=== PATIENT | male | born 1990 | race Caucasian/White ===

== ENCOUNTER 2016-09-25 17:23 | Emergency (ER) | payer OTHER ==
[~2016-09-25] VITALS: Ht 182.9 cm; Wt 90.7 kg
[~2016-09-25 17:23] MED LIST: AMOX500C2 PO; HYDR-1231 PO; SULF-222 PO; [UNRECOGNIZED DRUG - CODE] TP
--- NOTE | 2016-09-25 19:39 | Diagnostic Imaging Report ---
INDICATION: Trauma over Memorial weekend with knee pain. EXAMINATION: Three views of the right knee were obtained. FINDINGS: Nonweightbearing images show the joint space to be well preserved. Articulating surfaces are smooth. Patellofemoral joint is in good alignment. No fracture is demonstrated. IMPRESSION: Normal right knee. Dictated by: Dictated on workstation # [id number]
--- NOTE | 2016-09-25 20:16 | ED Lower Extremity ---
General Chief Complaint: Lower Extremity Stated Complaint: KNEE PAIN Nursing Triage Note: TO ED PER W/C REPORTS THAT IN AUGUST TWISTED HIS KNEE TODAY TWISTED HAVING PAIN. TOOK HYDROCODONE 20MIN [employer] PROFESSIONAL WITHOUT PAIN RELIEF Nursing Sepsis Screen: No Definite Risk Allergies and Home Medications Allergies Coded Allergies: No Known Drug Allergies (Unverified , 12/26/13) Home Medications Amoxicillin 500 Mg Capsule, 1 EACH PO TID, #30 Prescribed by: ALEX BOURNE on 04/13/14 1250 Hydrocodone Bit/Acetaminophen 1 Tab Tablet, 1-2 TAB PO Q6H PRN for PAIN, #14 Prescribed by: ALEX BOURNE on 04/13/14 1250 Past Wignqyj-Xotdct-Vslfqf Hx Patient Social History Alcohol Use: Occasionally Uses Recreational Drug Use: No Smoking Status: Current Everyday Smoker Recent Foreign Travel: No Contact w/Someone Who Travel: No Recent Infectious Disease Expo: No Immunizations Up To Date Tetanus Booster (TDap): More than 5yrs Surgeries HX Surgeries: Yes Respiratory Hx Respiratory Disorders: No Cardiovascular Hx Cardiac Disorders: No Neurological Hx Neurological Disorders: No Reproductive System Hx Reproductive Disorders: No Sexually Transmitted Disease: No HIV/AIDS: No Genitourinary Hx Genitourinary Disorders: No Gastrointestinal Hx Gastrointestinal Disorders: No Musculoskeletal Hx Musculoskeletal Disorders: No Endocrine Hx Endocrine Disorders: No HEENT HX ENT Disorders: No Cancer Hx Cancer: No Psychosocial Hx Psychiatric Problems: No Integumentary HX Skin/Integumentary Disorder: No Blood Transfusions Hx Blood Disorders: No Adverse Reaction to a Blood Tr: No Family Medical History Family Medial History: Thyroid disease 19 MOTHER Physical Exam Vital Signs Vital Sign - Last 12Hours 09/25/16 18:04 Temp 99.0 Pulse 93 Resp 18 B/P (MAP) 145/100 Capillary Refill : Less Than 3 Seconds Progress/Results/Core Measures Results/Orders Vital Signs/I&O Vital Sign - Last 12Hours 09/25/16 18:04 Temp 99.0 Pulse 93 Resp 18 B/P (MAP) 145/100 Blood Pressure Mean: 115 Diagnostic Imaging Diagonstic Imaging: Xray Plain Films/CT/US/NM/MRI: knee Comments X-ray viewed by me and report reviewed. See report below: NAME: NICOLE DIAZ Kelli MED REC#: [id number] PT STATUS: REG ER : 1990 PHYSICIAN: RAÚL BONEP ADMIT DATE: 09/25/16/ER Draft Date of Exam:09/25/16 KNEE, RIGHT, 3 VIEWS INDICATION: Trauma over weekend with knee pain. EXAMINATION: Three views of the right knee were obtained. FINDINGS: Nonweightbearing images show the joint space to be well preserved. Articulating surfaces are smooth. Patellofemoral joint is in good alignment. No fracture is demonstrated. IMPRESSION: Normal right knee. Dictated on workstation # [id number] Dict: 09/25/161934 Trans: 09/25/161937 [facility] [id number] Interpreted by: EVAN APODACA MD Departure Impression Impression: Primary Impression: Right knee injury Qualified Codes: S89.91XA - Unspecified injury of right lower leg, initial encounter Disposition: HOME, SELF-CARE Condition: Improved Departure-Patient Inst. Decision time for Depature: 20:14 Referrals: NO,LOCAL PHYSICIAN (PCP/Family) Primary Care Physician Patient Instructions: Knee Sprain (DC) Add. Discharge Instructions: There are no bony injuries to your knee identified on x-ray. You may have soft tissue injury that could be better assessed with MRI. Please follow-up with your primary care provider soon as possible. In the meantime you may use a knee immobilizer and crutches as necessary. Icing in 20 minute intervals and elevation should also be helpful. Compression with an Sudheer bandage may help with stability and swelling. For pain you may take ibuprofen up to 800 mg every 8 hours as needed. Add hydrocodone as prescribed for pain not controlled by ibuprofen. All discharge instructions reviewed with patient and/or family. Voiced understanding. Scripts Hydrocodone/Acetaminophen (Hydrocodon -Acetaminophen 5-325) 1 Each Tablet 1 EACH PO Q4H Y for PAIN, #14 TAB Prov: TYLER TOLENTINO MD 09/25/16 TYLER TOLENTINO MD Sep 25, 2016 20:16
[2016-09-25] MEDS ORDERED: HYDR-3812 PO (20:23)
[2016-09-25] MEDS ORDERED: HYDROcodone/APAP 5 MG/325 MG (LORTAB) TAB PO ONE (20:30)
[2016-09-25] MEDS ORDERED: KETOROLAC 60 MG/2 ML VIAL IM ONE (20:30)
[2016-09-25 20:42] VITALS: BP 0/0
== END 2016-09-25 20:42 | disposition home or self-care (01) ==
LOC: EDUNIT# 17:23 → ER 17:26
DX: S89.91XA Unspecified injury of right lower leg, initial encounter (principal); X50.9XXA Other and unspecified overexertion or strenuous movements or postures, initial encounter; F17.200 Nicotine dependence, unspecified, uncomplicated
CPT/HCPCS: 73562; 99283

== ENCOUNTER 2016-09-26 10:05 | Emergency (ER) | payer OTHER ==
[~2016-09-26] VITALS: Ht 180.3 cm; Wt 95.3 kg
[~2016-09-26 10:05] MED LIST changes: +HYDR-3812 PO
[2016-09-26] MEDS ORDERED: oxyCODONE/APAP 5/325MG (PERCOCET 5) TABLET PO STA (11:37)
[2016-09-26] MEDS ORDERED: KETOROLAC 60 MG/2 ML VIAL IM STA (11:37)
--- NOTE | 2016-09-26 11:44 | ED Lower Extremity ---
General Chief Complaint: Lower Extremity Stated Complaint: RIGHT KNEE PAIN Nursing Triage Note: PT WAS SEEN IN ED LAST PM, PT HAS KNEE IMMOBILIZER IN PLACE ON R KNEE. STATES HYDROCODONE IN MAKING HIM ITCH. NO RELIEF OF PAIN FROM PO MEDS Nursing Sepsis Screen: No Definite Risk Source: patient Exam Limitations: no limitations History of Present Illness Time seen by provider: 11:30 Initial Comments Here with complaint of right knee pain. Seen yesterday for the same and was given prescription medicine. He has appointment at the clinic at 1440 today for evaluation for MRI. No reported trauma but did state that he twisted his knee when he got up yesterday at home. He has not taken any pain medicine today because he took a hydrocodone yesterday and it made him itch. Other than the itching had no side effects. He is taking hydrocodone several times in the past. He was just concerned about what he can do. Denies breathing problems, nausea, vomiting or abdominal pain. Denies throat or tongue swelling. Onset: yesterday Severity: moderate Pain/Injury Location: right knee Method of Injury: twisted Modifying Factors: Improves With Immobilization, Worse With Movement Allergies and Home Medications Allergies Coded Allergies: No Known Drug Allergies (Unverified , 12/26/13) Home Medications Hydrocodone/Acetaminophen 1 Each Tablet, 1 EACH PO Q4H PRN for PAIN, #14 Prescribed by: TYLER LEHMAN on 09/25/162022 Constitutional: see HPI, No chills, No fever Respiratory: no symptoms reported Cardiovascular: no symptoms reported Musculoskeletal: joint pain, joint swelling Skin: no symptoms reported Past Kkyhqhu-Cctwqv-Lezctc Hx Patient Social History Alcohol Use: Occasionally Uses Recreational Drug Use: No Smoking Status: Current Everyday Smoker Recent Foreign Travel: No Contact w/Someone Who Travel: No Recent Infectious Disease Expo: No Recent Hopitalizations: No Immunizations Up To Date Tetanus Booster (TDap): More than 5yrs Surgeries HX Surgeries: Yes Respiratory Hx Respiratory Disorders: No Cardiovascular Hx Cardiac Disorders: No Neurological Hx Neurological Disorders: No Reproductive System Hx Reproductive Disorders: No Sexually Transmitted Disease: No HIV/AIDS: No Genitourinary Hx Genitourinary Disorders: No Gastrointestinal Hx Gastrointestinal Disorders: No Musculoskeletal Hx Musculoskeletal Disorders: No Endocrine Hx Endocrine Disorders: No HEENT HX ENT Disorders: No Cancer Hx Cancer: No Psychosocial Hx Psychiatric Problems: No Integumentary HX Skin/Integumentary Disorder: No Blood Transfusions Hx Blood Disorders: No Adverse Reaction to a Blood Tr: No Reviewed Nursing Assessment Reviewed/Agree w Nursing PMH: Yes Family Medical History Significant Family History: No Pertinent Family Hx Family Medial History: Thyroid disease 19 MOTHER Physical Exam Vital Signs Vital Sign - Last 12Hours 09/26/16 10:24 Temp 97.4 Pulse 86 Resp 18 B/P (MAP) 159/62 Pulse Ox 98 Capillary Refill : Less Than 3 Seconds General Appearance: WD/WN, no apparent distress Cardiovascular: regular rate, rhythm, no murmur Respiratory: lungs clear, normal breath sounds Knees: right knee pain, right knee soft tissue tenderness, right knee swelling , right knee other (mild pain to the posterior aspect of the knee with minimal anterior swelling. No tenderness along the tibial plateau.) Neurologic/Tendon: normal sensation, normal motor functions, normal tendon functions Neurologic/Psychiatric: alert, oriented x 3 Skin: normal color, warm/dry Progress/Results/Core Measures Results/Orders My Orders Orders - ESTHELA PERKINS MD Ketorolac Injection (Toradol Injection) (09/26/16 11:37) Oxycodone/Apap 5/325mg Tablet (Percocet (09/26/16 11:37) Vital Signs/I&O Vital Sign - Last 12Hours 09/26/16 10:24 Temp 97.4 Pulse 86 Resp 18 B/P (MAP) 159/62 Pulse Ox 98 Blood Pressure Mean: 94 Progress Note : Progress Note Percocet 2 tabs by mouth and Toradol 60 mg IM ordered. I did re-situate the Sudheer wrap and knee immobilizer after exam. Patient states that it was more comfortable. Patient has appointment today and his father we'll get him to the appointment. He will take Benadryl with his hydrocodone has he's had tender coded in the past successfully for many times. Discharged home with return pressure. Patient verbalize understanding instructions and agreement with plan. Departure Impression Impression: Primary Impression: Internal derangement of right knee Disposition: 01 HOME, SELF-CARE Condition: Stable Departure-Patient Inst. Referrals: NO,LOCAL PHYSICIAN (PCP/Family) Primary Care Physician Patient Instructions: Knee Sprain (DC) Add. Discharge Instructions: All discharge instructions reviewed with patient and/or family. Voiced understanding. Take medications as directed. You may use [id number] Benadryl or the generic diphenhydramine 25 mg every 6 hours as needed with your pain med to decrease itching. Keep your appointment today as scheduled. Return for worse pain, swelling, weakness, breathing problems or other concerns as needed. ESTHELA PERKINS MD Sep 26, 2016 11:44
[2016-09-26 11:50] VITALS: BP 148/62
== END 2016-09-26 11:50 | disposition home or self-care (01) ==
LOC: EDUNIT# 10:05 → ER 10:08
DX: M23.91 Unspecified internal derangement of right knee (principal)
CPT/HCPCS: 99283

== ENCOUNTER → 2016-10-04 | Outpatient (CLI) | payer SELFPAY ==
--- NOTE | 2016-10-04 10:25 | Diagnostic Imaging Report ---
PROCEDURE: MRI right joint lower extremity without contrast. TECHNIQUE: Multiplanar, multisequence non contrast-enhanced MRI of the right lower extremity was accomplished. INDICATION: Knee pain. FINDINGS: The anterior cruciate and posterior cruciate ligaments are intact. Medial collateral ligaments are intact. The biceps femoris, tibial collateral and iliotibial band are intact. The medial meniscus is normal in signal intensity and morphology. There is abnormal signal intensity in the posterior horn of the lateral meniscus suspect for meniscal tear. Quadriceps tendon and and patellar tendons are intact. There is a moderate knee joint effusion. The articular cartilage is well-maintained in all 3 knee joint compartments. IMPRESSION: Abnormal signal intensity in the posterior horn of the lateral meniscus suspect for meniscal tear. Moderate knee joint effusion. No other internal derangement of the knee Dictated by: Dictated on workstation # [id number]
== END ==
LOC: RAD 09:07
PROVIDERS: ATTEND Nurse Practitioner Family
DX: R93.7 Abnormal findings on diagnostic imaging of other parts of musculoskeletal system (principal); M25.561 Pain in right knee
CPT/HCPCS: 73721